=== PATIENT | male | born 2000 | race Caucasian/White ===

== ENCOUNTER 2025-03-28 14:12 | Emergency (ER) | payer BC, SELFPAY ==
[2025-03-28 14:30] VITALS: BP 124/56; PULSE 123; RESP 16; TEMP 37.4; O2SAT 99
[2025-03-28 14:36] LABS: EDINFLUASCREEN Positive (Negative); EDINFLUBSCREEN Negative (Negative)
[2025-03-28 14:44] LABS: EDCOVIDSCREEN Negative (Negative)
--- NOTE | 2025-03-28 15:16 | ED_ITS ---
HPI - URI/Sore Throat General Chief Complaint: Upper Respiratory Infection Stated Complaint: tired, fever, elevated HR, Dizzy Time Seen by Provider: 03/28/25 15:00 Source: patient and RN notes reviewed Mode of arrival: ambulatory Limitations: no limitations History of Present Illness HPI Narrative: 25-year-old male patient presents [facility] Care complaining of upper respiratory symptoms of started yesterday. Patient reports fevers, rapid heart rate, cough, congestion cough body aches, chills, sweats. Patient took DayQuil and ibuprofen to help with symptoms. Patient not get vaccinated for the flu. Patient denies any chest pain, breathing problems, or any other symptoms. Related Data Allergies Allergy/AdvReac Type Severity Reaction Status Date / Time No Known Allergies Allergy Verified 03/28/25 14:32 Review of Systems Review of Systems: CONSTITUTIONAL: Positive body aches, fever, chills, and sweats. EYES: Denies visual changes, redness, or discharge. ENT: Denies rhinorrhea, congestion, sore throat, or otalgia. Positive for congestion. CARDIOVASCULAR: Denies chest pain, palpitations, or edema. RESPIRATORY: Positive for cough. Negative for wheezing or dyspnea. GASTROINTESTINAL: Denies abdominal pain, nausea, vomiting, or diarrhea. GENITOURINARY: Denies dysuria or hematuria. SKIN: Denies rash or itching. MUSCULOSKELETAL: Denies back pain, joint pain, or myalgia. NEUROLOGIC: Denies headache, numbness, or weakness. PSYCHIATRIC: Denies anxiety or depression. All other systems reviewed are negative, except as documented in HPI. PMFSH Comments At the time of my signature, I reviewed and agree with the nursing past medical, surgical, social, and family history. There is no relevant family history pertinent to the patient complaint. Exam Narrative: GENERAL: This is a well-nourished, well-developed adult, in no apparent distress. They are non ill-appearing, nontoxic appearing. HEAD: normocephalic, atraumatic. EYES: Sclera clear/white. Conjunctiva normal. Vision is grossly intact. Extraocular movements intact EARS: External ears normal, auditory canals clear and without drainage, TMs normal without perforation. Hearing grossly intact. NOSE: External nose normal with no obvious nasal discharge, nasal turbinates erythematous, no rhinorrhea. THROAT: Mucous membranes moist, posterior pharynx erythematous. PND present. Uvula midline. NECK: Neck supple, non-tender without lymphadenopathy, masses or thyromegaly. CARDIOVASCULAR: Regular rate and rhythm without murmurs, gallops, or rubs. RESPIRATORY: Clear to auscultation. Breath sounds equal bilaterally. No wheezes, rales, or rhonchi. SKIN: warm, Dry, intact with no suspicious lesions or rash, good texture and turgor. NEURO: awake, alert, and oriented to person, place and time. There were no obvious focal neurologic abnormalities. EXTREMITIES: No joint tenderness, effusion, or edema noted. BACK: Nontender without deformity. No CVA tenderness. Course Course Level of Care: Express Care Visit Vital Signs Vital signs: Vital Signs Temperature 99.3 F 03/28/25 14:30 Pulse Rate 123 H 03/28/25 14:30 Respiratory Rate 16 03/28/25 14:30 Blood Pressure 124/56 L 03/28/25 14:30 Pulse Oximetry 99 03/28/25 14:30 Temperature 99.3 F 03/28/25 14:30 Pulse Rate 123 H 03/28/25 14:30 Respiratory Rate 16 03/28/25 14:30 Blood Pressure 124/56 L 03/28/25 14:30 Pulse Oximetry 99 03/28/25 14:30 [facility] Narrative Medical decision making narrative: Patient positive for influenza A. Will treat with Tamiflu. Discussed physical exam findings. Advised supportive measures and signs/symptoms to go to the ER. Pt is appropriate for outpt treatment and f/u. Differential Diagnosis Differential Diagnosis: Differential diagnostic considerations for upper respiratory infection include upper respiratory infection, croup, otitis media, sinusitis, viral infection, bronchitis, influenza, pharyngitis, strep, uvulitis. Lab Data [facility] Lab Attestation statement: I personally reviewed the patient's lab results. Labs: Lab Results 03/28/25 03/28/25 Range/Units 14:34 14:40 POC Influenza A Ag Positive (Negative) POC Influenza B Ag Negative (Negative) POC SARS CoV-2 Ag Negative (Negative) Critical Care Time Critical Care Time Critical Care Time: No Discharge Plan Discharge Clinical Impression: Influenza Patient Disposition: Home Condition: Stable Instructions: Antibiotic Form, Influenza (ED) Additional Instructions: You should avoid crowds until you are fever free for 24 hours without the use of fever reducing medications, or the symptoms are improved Rest. Drink plenty of fluids. Tylenol and ibuprofen as needed for pain or fevers. Recommend Flonase spray and Zyrtec (or Claritin/Sally) for sinus pressure/congestion over the counter Cough syrup may cause drowsiness; avoid driving or take it at night time. Take Tamiflu as directed. Follow up with your primary care provider 3-5 days. Go to the ER for worsening symptoms, chest pain, difficulty breathing, nausea, vomiting, or any other serious concerns Patient Language: [place] Prescriptions: New oseltamivir [Tamiflu] 75 mg capsule 75 mg PO Q12H 5 Days Qty: 10 0RF Follow-up/Referrals: UNKNOWN,DOCTOR [Primary Care Provider] Stand Alone Forms: Work/School Release IP Time of Disposition: 15:03
== END 2025-03-28 15:08 | disposition home or self-care (01) ==
DX: J10.1 Influenza due to other identified influenza virus with other respiratory manifestations (principal); Z20.822 Contact with and (suspected) exposure to COVID-19
CPT/HCPCS: 87426; 87804; 99213; G0463